=== PATIENT | female | born 1955 | race Asian ===

== ENCOUNTER → 2016-08-01 | Outpatient (CLI) | payer BC ==
[~2016-08-01] MED LIST: IBUP600T44 PO
== END | disposition home or self-care (01) ==
LOC: C.PAPS 14:07
PROVIDERS: ATTEND Obstetrics & Gynecology
DX: Z01.419 Encounter for gynecological examination (general) (routine) without abnormal findings (principal)

== ENCOUNTER → 2016-08-16 | Outpatient (CLI) | payer BC | END | disposition home or self-care (01) | LOC: C.RDSM 13:46 | PROVIDERS: ATTEND Family Medicine | DX: M25.531 Pain in right wrist (principal) ==

== ENCOUNTER → 2016-08-17 | Outpatient (CLI) | payer BC ==
--- NOTE | 2016-08-17 17:14 | MAMMOGRAPHY REPORT ---
BILATERAL DIGITAL SCREENING MAMMOGRAM TOMOSYNTHESIS WITH CAD: 08/17/2016 CLINICAL HISTORY: Routine screening. Patient has no complaints. TECHNIQUE: Breast tomosynthesis in addition to standard 2D mammography was performed. Current study was also evaluated with a Computer Aided Detection (CAD) system. COMPARISON: Comparison is made to exams dated: 03/14/2014 mammogram, 12/15/2011 mammogram, 12/14/2010 ma mmogram, 03/05/2009 mammogram, 03/02/2009 mammogram - [facility], and 02/28/2008. BREAST COMPOSITION: The tissue of both breasts is heterogeneously dense, which may obscure small mas ses. FINDINGS: No suspicious masses, calcifications, or areas of architectural distortion are noted in ei ther breast. There has been no significant interval change compared to prior exams. IMPRESSION: ACR BI-RADS CATEGORY 1: NEGATIVE There is no mammographic evidence of malignancy. A 1 year screening mammogram is recommended. The pa tient will receive written notification of the results. Approximately 10% of breast cancers are not detected with mammography. A negative mammographic report should not delay biopsy if a clinically suggestive mass is present. Radha Abreu M.D. /:08/17/2016 15:04:37 Cad Intern: Quin MARION,R, M, [facility] letter sent: Normal 1/2 BI-RADS Code: ACR BI-RADS Category 1: Negative
== END | disposition home or self-care (01) ==
LOC: C.MAMM 12:58
PROVIDERS: ATTEND Internal Medicine
DX: Z12.31 Encounter for screening mammogram for malignant neoplasm of breast (principal)

== ENCOUNTER → 2016-08-22 | Outpatient (CLI) | payer BC ==
[~2016-08-22] MED LIST changes: +GADAVIST IV PRN
[2016-08-22 13:10] LABS: BLOOD UREA NITROGEN 17 mg/dl (7-18); CREATININE 0.79 mg/dl (0.60-1.20)
--- NOTE | 2016-08-22 15:23 | DIAGNOSTIC IMAGING REPORT ---
RIGHT WRIST MRI HISTORY: PAIN IN RIGHT WRIST Right TECHNIQUE: Multiplanar multisequence MRI of the right wrist was performed both before and after the intravenous administration of contrast. COMPARISON STUDY: Right wrist 08/16/2016. FINDINGS: No fracture or dislocation within the right wrist. Normal marrow signal intensity seen throughout the visualized osseous structures. There is mild motion artifact. The visualized tendons are normal in course, caliber, and signal intensity. The scapholunate and lunotriquetral ligaments are intact. The TFCC is also intact. Small subcutaneous cystic focus and edema along the radial side of the wrist with associated enhancement. The enhancement partially surrounds the adjacent abductor pollicis longus and extensor pollicis brevis tendons at the level of the distal radius. The small cystic focus measures approximately 4 mm. This is best seen on axial image 17 and coronal image 14. IMPRESSION: 1. A 4 mm cystic focus within the subcutaneous soft tissues at the radial side of the wrist deep to the patient's skin marker. This demonstrates mild surrounding edema/enhancement. This is nonspecific and could represent an infected sebaceous cyst or ganglion cyst. 2. No underlying bony abnormality. Electronically signed by: Jorge Pastrana M.D. 08/22/2016 3:22 PM Dictated Date/Time: 08/22/2016 3:08 PM
== END | disposition home or self-care (01) ==
LOC: C.MRIBC 13:43
PROVIDERS: ATTEND Family Medicine
DX: Z01.812 Encounter for preprocedural laboratory examination (principal); R93.6 Abnormal findings on diagnostic imaging of limbs; M25.531 Pain in right wrist; D48.2 Neoplasm of uncertain behavior of peripheral nerves and autonomic nervous system

== ENCOUNTER → 2016-12-29 | Outpatient (CLI) | payer BC ==
[~2016-12-29] MED LIST changes: -GADAVIST IV PRN
== END | disposition home or self-care (01) ==
LOC: C.MAMM 10:31
PROVIDERS: ATTEND Internal Medicine
DX: M85.80 Other specified disorders of bone density and structure, unspecified site (principal)

== ENCOUNTER → 2017-02-10 | Outpatient (CLI) | payer BC ==
[2017-02-10 09:53] LABS: BLOOD UREA NITROGEN 17 mg/dl (7-18); BUN/CREATININE RATIO 25.7 (10-20); CALCIUM 8.4 mg/dl (8.5-10.1); CARBON DIOXIDE 28 mmol/L (21-32); CHLORIDE 105 mmol/L (98-107); CREATININE 0.65 mg/dl (0.60-1.20); GLUCOSE 88 mg/dl (70-99); POTASSIUM 3.8 mmol/L (3.5-5.1); SODIUM 137 mmol/L (136-145)
[2017-02-10 09:57] LABS: CHOLESTEROL 361 mg/dl (0-200); HDL CHOLESTEROL 91 mg/dl; LDL CHOLESTEROL CALCULATED 249 mg/dl; TRIGLYCERIDES 103 mg/dl (0-150); VERY LOW DENSITY LIPOPROT CALC 21 mg/dl
== END | disposition home or self-care (01) ==
LOC: C.LAB1850 08:10
PROVIDERS: ATTEND Internal Medicine
DX: E78.5 Hyperlipidemia, unspecified (principal); E55.9 Vitamin D deficiency, unspecified; M85.80 Other specified disorders of bone density and structure, unspecified site

== ENCOUNTER → 2017-03-15 | Outpatient (CLI) | payer BC | END | disposition home or self-care (01) | LOC: C.RDSM 14:57 | PROVIDERS: ATTEND Family Medicine | DX: M25.572 Pain in left ankle and joints of left foot (principal); M76.62 Achilles tendinitis, left leg ==

== ENCOUNTER 2017-04-26 13:27 | Emergency (ER) | payer BC ==
[~2017-04-26] VITALS: Ht 162.6 cm; Wt 56.0 kg
[2017-04-26 13:36] VITALS: TEMP 36.6; Ht 162.6 cm; Wt 56.0 kg
[2017-04-26 14:04] VITALS: O2SAT 98
[2017-04-26 14:13] LABS: BASO % 0.8 %; EOS % 0.5 %; HEMATOCRIT 41.1 % (37-47); HEMOGLOBIN 15.1 g/dL (12.0-16.0); LYMPH % 24.1 %; LYMPH ABS # 1.43 K/uL (1.2-3.4); MEAN CELL VOLUME 88.4 fL (80-100); MEAN CORPUSCULAR HEMOGLOBIN 32.5 pg (25-34); MEAN CORPUSCULAR HGB CONC 36.7 g/dl (32-36); MEAN PLATELET VOLUME 9.3 fL (7.4-10.4); MONO % 8.2 %; MONO ABS # 0.49 K/uL (0.11-0.59); NEUT % 66.2 %; NEUT ABS # 3.93 K/uL (1.4-6.5); PLATELET COUNT 283 K/uL (130-400); RED CELL DISTRIBUTION WIDTH CV 12.1 % (11.5-14.5); RED CELL DISTRIBUTION WIDTH SD 38.9 fL (36.4-46.3); WHITE BLOOD COUNT 5.94 K/uL (4.8-10.8)
[2017-04-26 14:14] LABS: BASO ABS # 0.05 K/uL (0-0.2); EOS ABS # 0.03 K/uL (0-0.5); IG# 0.01 K/uL (0.00-0.02)
--- NOTE | 2017-04-26 14:23 | DIAGNOSTIC IMAGING REPORT ---
CHEST ONE VIEW PORTABLE HISTORY: Atypical CHEST PAIN COMPARISON: None. FINDINGS: The lungs are clear. Cardiac silhouette is normal in size. No pleural effusions. No pneumothorax. IMPRESSION: No acute process. Electronically signed by: Jorge Pastrana M.D. 04/26/2017 2:22 PM Dictated Date/Time: 04/26/2017 2:20 PM
[2017-04-26 14:40] LABS: ALT/SGPT 35 U/L (12-78); AST/SGOT 23 U/L (15-37); BLOOD UREA NITROGEN 19 mg/dl (7-18); CALCIUM 9.3 mg/dl (8.5-10.1); CARBON DIOXIDE 26 mmol/L (21-32); CREATININE 0.72 mg/dl (0.60-1.20); GLUCOSE 114 mg/dl (70-99); LIPASE 165 U/L (73-393); POTASSIUM 3.9 mmol/L (3.5-5.1); SODIUM 137 mmol/L (136-145)
[2017-04-26 14:43] LABS: ALKALINE PHOSPHATASE 40 U/L (45-117); CKMB 1.4 ng/ml (0.5-3.6); TOTAL PROTEIN 7.6 gm/dl (6.4-8.2)
[2017-04-26 17:59] VITALS: BP 159/72; PULSE 68; O2SAT 98
--- NOTE | 2017-04-26 19:07 | EMERGENCY ROOM VISIT NOTE ---
History Report prepared by David: Alexandre Abarca Under the Supervision of: Dr. Wilberto Mccarthy M.D. First contact with patient: 13:55 Chief Complaint: CHEST PAIN Stated Complaint: CHEST DISCOMFORT Nursing Triage Summary: pt was at PT for achilles tendon and started to get right sided chest pain and arm pain pt was told to come to the ED History of Present Illness The patient is a 61 year old female who presents to the Emergency Room with complaints of intermittent right sided chest pain that began earlier today. She rates her pain a 3/10 in severity. The patient has a past medical history of posterior tibial tendonitis without any other past medical history. She has a family history of stroke and cardiac disease. She regularly ice skates about three times a week and is currently receiving physical therapy for her tendonitis. This morning after the patient ice skated, she presented to her physical therapist as usual. After a normal appointment, she went home and began to wash her car. She then suddenly began to feel this chest discomfort only with inhalation. She went to her PCP who referred her to the ER for further evaluation. Pt denies LOC, headache, fevers, chills, diaphoresis, visual changes, neck pain, breathing difficulties, nausea, vomiting, abdominal pain, back pain, melena, hematochezia, urinary symptoms, numbness, weakness, lymphadenopathy, rash, or other complaints. Source of History: patient Onset: earlier today Position: chest (right) Symptom Intensity: 3/10 Quality: sharp Timing: intermittent Modifying Factors (Worsening): other (Inhalation) Review of Systems See HPI for pertinent positives and negatives. A total of ten systems were reviewed and were otherwise negative. Past Medical & Surgical Medical Problems: (1) Tibialis posterior tendonitis Family History Heart disease Stroke Social History Smoking Status: Never Smoker Smokeless Tobacco Use: No Drug Use: none Marital Status: Housing Status: lives with significant other Current/Historical Medications No Active Prescriptions or Reported Meds Allergies Coded Allergies: Azithromycin (Unverified Allergy, Intermediate, ., 04/26/17) Beta Adrenergic Blockers (Unverified Allergy, Intermediate, ., 04/26/17) Estrogens (Unverified Allergy, Intermediate, ., 04/26/17) Rosuvastatin (Unverified Allergy, Intermediate, ., 04/26/17) Nitrofurantoin (Verified Allergy, Unknown, ., 04/26/17) Penicillins (Verified Allergy, Unknown, ., 04/26/17) Sulfa Antibiotics (Unverified Allergy, Unknown, "sulfa" allergy; not sure if this was to abx or not, 04/26/17) Physical Exam Vital Signs Date Time Temp Pulse Resp B/P (MAP) Pulse Ox O2 Delivery O2 Flow Rate FiO2 04/26/17 17:59 68 16 159/72 98 04/26/17 16:30 63 16 162/66 96 04/26/17 14:54 61 16 166/74 97 Room Air 04/26/17 14:04 98 Room Air 04/26/17 14:00 86 04/26/17 13:36 36.6 94 16 168/89 97 Room Air Physical Exam GENERAL: Awake, alert, well-appearing, in no distress HENT: Normocephalic, atraumatic. Oropharynx unremarkable. EYES: Normal conjunctiva. Sclera non-icteric. NECK: Supple. No nuchal rigidity. FROM. No masses. RESPIRATORY: Clear to auscultation. No wheezes. CARDIAC: Normal rate. Normal rhythm. No murmurs. No rubs. Extremities warm and well perfused. Pulses equal. No JVD. GI: Soft, non-distended. No tenderness to palpation. No rebound or guarding. No masses. RECTAL: Deferred. MUSCULOSKELETAL: Atraumatic. Chest examination reveals no tenderness. The back is symmetrical on inspection without obvious abnormality. There is no CVA tenderness to palpation. No joint edema. LOWER EXTREMITIES: Calves are equal size bilaterally and non-tender. No edema. No discoloration. NEURO: Normal sensorium. No sensory or motor deficits noted. SKIN: No rash or jaundice noted. Medical Decision & Procedures ER Provider Diagnostic Interpretation: Radiology results as stated below per my review and radiologist interpretation: CHEST ONE VIEW PORTABLE HISTORY: Atypical CHEST PAIN COMPARISON: None. FINDINGS: The lungs are clear. Cardiac silhouette is normal in size. No pleural effusions. No pneumothorax. IMPRESSION: No acute process. Electronically signed by: Jorge Pastrana M.D. 04/26/2017 2:22 PM Dictated Date/Time: 04/26/2017 2:20 PM Laboratory Results 04/26/17 14:00 Red Blood Count 4.65, Mean Corpuscular Volume 88.4, Mean Corpuscular Hemoglobin 32.5, Mean Corpuscular Hemoglobin Concent 36.7, Mean Platelet Volume 9.3, Neutrophils (%) (Auto) 66.2, Lymphocytes (%) (Auto) 24.1, Monocytes (%) (Auto) 8.2, Eosinophils (%) (Auto) 0.5, Basophils (%) (Auto) 0.8, Neutrophils # (Auto) 3.93, Lymphocytes # (Auto) 1.43, Monocytes # (Auto) 0.49, Eosinophils # (Auto) 0.03, Basophils # (Auto) 0.05 04/26/17 14:00 Test 04/26/17 14:00 04/26/17 14:45 04/26/17 16:40 White Blood Count 5.94 K/uL (4.8-10.8) Red Blood Count 4.65 M/uL (4.2-5.4) Hemoglobin 15.1 g/dL (12.0-16.0) Hematocrit 41.1 % (37-47) Mean Corpuscular Volume 88.4 fL (80-100) Mean Corpuscular Hemoglobin 32.5 pg (25-34) Mean Corpuscular Hemoglobin Concent 36.7 g/dl (32-36) Platelet Count 283 K/uL (130-400) Mean Platelet Volume 9.3 fL (7.4-10.4) Neutrophils (%) (Auto) 66.2 % Lymphocytes (%) (Auto) 24.1 % Monocytes (%) (Auto) 8.2 % Eosinophils (%) (Auto) 0.5 % Basophils (%) (Auto) 0.8 % Neutrophils # (Auto) 3.93 K/uL (1.4-6.5) Lymphocytes # (Auto) 1.43 K/uL (1.2-3.4) Monocytes # (Auto) 0.49 K/uL (0.11-0.59) Eosinophils # (Auto) 0.03 K/uL (0-0.5) Basophils # (Auto) 0.05 K/uL (0-0.2) RDW Standard Deviation 38.9 fL (36.4-46.3) RDW Coefficient of Variation 12.1 % (11.5-14.5) Immature Granulocyte % (Auto) 0.2 % Immature Granulocyte # (Auto) 0.01 K/uL (0.00-0.02) Anion Gap 8.0 mmol/L (3-11) Est Creatinine Clear Calc Drug Dose 69.1 ml/min Estimated GFR () 103.3 Estimated GFR (Non- 89.1 BUN/Creatinine Ratio 26.4 (10-20) Calcium Level 9.3 mg/dl (8.5-10.1) Total Bilirubin 0.4 mg/dl (0.2-1) Direct Bilirubin < 0.1 mg/dl (0-0.2) Aspartate Amino Transf (AST/SGOT) 23 U/L (15-37) Alanine Aminotransferase (ALT/SGPT) 35 U/L (12-78) Alkaline Phosphatase 40 U/L (45-117) Total Creatine Kinase 97 U/L (26-192) Creatine Kinase MB 1.4 ng/ml (0.5-3.6) Creatine Kinase MB Ratio 1.4 (0-3.0) Total Protein 7.6 gm/dl (6.4-8.2) Albumin 4.0 gm/dl (3.4-5.0) Lipase 165 U/L (73-393) Bedside D-Dimer 145 ng/mlFEU (0-450) Troponin I < 0.015 ng/ml (0-0.045) Laboratory results reviewed by me ECG Per My Interpretation Indication: chest pain Rate (beats per minute): 90 Rhythm: normal sinus Findings: no acute ischemic change, no ectopy, other (Right axis deviation) Change: Patient's electrocardiogram was interpreted by me. ED Course 1355: The patient was evaluated in room B8. A complete history and physical exam was performed. 1751: I reevaluated the patient. Discussed results and discharge instructions: She verbalized understanding and agreement. The patient is ready for discharge. Medical Decision Prior records/ancillary studies reviewed. Triage Nursing notes reviewed and agree them. Additional history obtained from the family. The patient's history was concerning for right-sided chest pain. Differential diagnosis: Etiologies such as musculoskeletal, pleurisy, pulmonary embolism, pneumonia, pneumothorax, infections, pericarditis, myocarditis, cardiac ischemia, aortic dissection,esophageal rupture, gastrointestinal, as well as others were entertained. Physical examination: As above. Clinically the patient looks well. ER treatment provided: No medication given. On reassessment the patient felt better. Diagnostic interpretation by me: The electrocardiogram was negative for pathologic change. The labs revealed an unremarkable CBC and chemistry panel. D-dimer negative. Troponin negative. Repeat troponin negative. LFTs unremarkable. Imaging studies: Chest x-ray as above The patient is doing very well. She has reproducible pleuritic pain that is on the far right side of her chest. It is very minor. Her workup so far here is negative. This seems like it may be pleurisy or musculoskeletal. The patient states she is very active and thinks she may have pulled a muscle ice skating. I discussed conservative management with her and they felt comfortable. If she worsens in any way she will be back.I gave my usual and customary discussion regarding this issue. By the evaluation outlined above other emergent etiologies such as those listed in the differential, as well as others, were deemed relatively unlikely. The patient was educated about the findings as listed above. All questions were answered and the patient was pleased with the treatment. Return instructions were outlined and the patient was discharged in stable condition. The patient was referred to her PCP for follow-up for a recheck of the current condition. Medication Reconcilliation Current Medication List: was personally reviewed by me Blood Pressure Screening Patient's blood pressure: Elevated blood pressure Blood pressure disposition: Referred to PCP Impression Primary Impression: Right-sided chest pain Scribe Attestation The scribe's documentation has been prepared under my direction and personally reviewed by me in its entirety. I confirm that the note above accurately reflects all work, treatment, procedures, and medical decision making performed by me. Departure Information Dispostion Home / Self-Care Prescriptions No Active Prescriptions or Reported Meds Referrals Ronn Greene M.D. Forms Call Back Authorization, HOME CARE DOCUMENTATION FORM, IMPORTANT VISIT INFORMATION Patient Instructions My [facility] Additional Instructions CHEST PAIN INSTRUCTIONS: Ibuprofen(Motrin, Advil) may be used for fever or pain. Use 600mg every six hours as needed. Take with food. Avoid using more than 2400mg in a 24 hour period. Do not use 2400mg per day for more than three consecutive days without physician direction. Prolonged inappropriate use can lead to stomach upset or ulcers. (AND/OR) Acetaminophen(Tylenol) may be used for fever or pain. Use 1000mg every six hours as needed. Avoid using more than 4000mg in a 24 hour period. Rest and drink plenty of fluids as tolerated. Continue current medications. Avoid strenuous activities and anything that worsens your pain. Resume normal activities once your symptoms resolve. Return to the ER immediately for worsening or persistent chest pain, abdominal pain, vomiting, fevers, chest pains, difficulty breathing, worsening of your condition, or as needed. Follow up with your primary physician in 2-3 days for a recheck of your current condition.
== END 2017-04-26 17:59 | disposition home or self-care (01) ==
LOC: C.EDB 13:28
DX: R07.9 Chest pain, unspecified (principal); Z82.49 Family history of ischemic heart disease and other diseases of the circulatory system; Z82.3 Family history of stroke